=== PATIENT | female | born 1990 | race Caucasian/White ===

== ENCOUNTER 2022-04-06 12:14 | Emergency (ER) | payer BC, SELFPAY ==
--- NOTE | 2022-04-06 12:17 | ED.GENADULT ---
HPI - General Adult General Chief complaint: Skin/Abscess/Foreign Body Stated complaint: pain and swelling rt breast Time Seen by Provider: 04/06/22 12:16 Source: patient Mode of arrival: ambulatory Limitations: no limitations History of Present Illness HPI narrative: 31-year-old female patient presents to the [facility] with complaints of right breast pain. Patient states she is 8 weeks and does breast feed. Patient states she started having some pain to the breast about 1 or 2 days ago but states that has happened before. Patient woke up this morning with fevers, chills and states that her right breast is painful and inflamed. patient states she did notice some pus coming from the right nipple Related Data Allergies Allergy/AdvReac Type Severity Reaction Status Date / Time NKDA Allergy Mild Unknown Uncoded 04/06/22 12:47 Review of Systems Review of Systems: CONSTITUTIONAL: Denies fever, chills, or sweats. EYES: Denies visual changes, redness, or discharge. ENT: Denies rhinorrhea, congestion, sore throat, or otalgia. CARDIOVASCULAR: Denies chest pain, palpitations, or edema. RESPIRATORY: Denies cough or dyspnea. GASTROINTESTINAL: Denies abdominal pain, nausea, vomiting, or diarrhea. GENITOURINARY: Denies dysuria or hematuria. SKIN: Denies rash or itching. Positive right breast pain MUSCULOSKELETAL: Denies back pain, joint pain, or myalgia. NEUROLOGIC: Denies headache, numbness, or weakness. PSYCHIATRIC: Denies anxiety or depression. [facility] Past Medical History Medical History (Updated 04/06/22 @ 12:48 by BROOK Latham) No significant past medical history Comments At the time of my signature I agree with nursing past medical history, surgical, social, and family history. There is no relevant family history pertinent to the presenting complaint. Exam Narrative: GENERAL: Well-appearing, well-nourished, and in no acute distress. HEAD: Normocephalic, atraumatic. EYES: PERRLA and EOMI. ENT: Nares clear, no rhinorrhea or epistaxis. Mucous membranes moist. NECK: Supple. No lymphadenopathy CHEST: Clear to auscultation. No respiratory distress. HEART: Regular rate and rhythm. No murmur heard. Normal peripheral pulses. ABDOMEN: Soft, nontender, nondistended, normal active bowel sounds. EXTREMITIES: Normal range of motion. No edema. SKIN: Warm, dry, no rash. right breast is tender, warm to the touch with erythema. No active discharge noted at this time NEURO: No focal deficits. Alert and oriented x3. Course Course Level of Care: Express Care Visit Vital Signs Vital signs: Vital Signs Temperature 37.3 C 04/06/22 12:38 Pulse Rate 99 04/06/22 12:38 Respiratory Rate 18 04/06/22 12:38 Blood Pressure 114/66 04/06/22 12:38 Pulse Oximetry 100 04/06/22 12:38 Oxygen Delivery Room Air 04/06/22 12:38 Temperature 37.3 C 04/06/22 12:38 Pulse Rate 99 04/06/22 12:38 Respiratory Rate 18 04/06/22 12:38 Blood Pressure 114/66 04/06/22 12:38 Pulse Oximetry 100 04/06/22 12:38 Oxygen Delivery Room Air 04/06/22 12:38 Vital signs reviewed Medical Decision Making MDM Narrative Medical decision making narrative: discussed with patient most likely does have mastitis therefore we will discharge her home with an oral antibiotic. She may continue breast feeding been using warm compresses to help with pain. Patient verbalized understanding denies any other questions or concerns at this time. Differential Diagnosis Differential Diagnosis: differential diagnosis: Abscess, cellulitis, hidradenitis, laceration, puncture wound , mastitis Vital Signs Vital Signs: Vital Signs Temperature 37.3 C 04/06/22 12:38 Pulse Rate 99 04/06/22 12:38 Respiratory Rate 18 04/06/22 12:38 Blood Pressure 114/66 04/06/22 12:38 Pulse Oximetry 100 04/06/22 12:38 Oxygen Delivery Room Air 04/06/22 12:38 Temperature 37.3 C 04/06/22 12:38 Pulse Rate 99 04/06/22 12:38
[2022-04-06 12:38] VITALS: BP 114/66; PULSE 99; RESP 18; TEMP 37.3; O2SAT 100
== END 2022-04-06 12:52 | disposition home or self-care (01) ==
PROVIDERS: Emergency Provider Nurse Practitioner Family
DX: N61.0 Mastitis without abscess (principal); Z20.822 Contact with and (suspected) exposure to COVID-19
CPT/HCPCS: 87081; 87426; 87804; 87880; 99213; C9803; G0463